=== PATIENT | female | born 1960 | race Caucasian/White ===

== ENCOUNTER 2017-04-12 14:10 | Inpatient (IN) | payer OTHER ==
[~2017-04-12] VITALS: Ht 165.1 cm; Wt 82.6 kg
[2017-05-21] VITALS (8 sets, daily range): BP systolic 133–175; BP diastolic 59–79; PULSE 73–87; TEMP 98.1
[2017-05-21 10:08] LABS: BASO # 0.1 (0.0-0.2); BASO % 0.9 % (0.0-2.0); EOS # 0.1 (0.0-0.7); EOS % 0.7 % (0-4.0); GRAN # 6.6 (1.4-6.5); GRAN % 64.1 % (42.2-75.2); LYMPH # 2.7 (1.2-3.4); LYMPH % 26.8 % (20.0-51.0); MEAN CELL VOLUME 95 fl (80.0-100.0); MEAN CORPUSCULAR HEMOGLOBIN 32 pg (27.0-31.0); MEAN CORPUSCULAR HGB CONC 34 g/dl (33.0-37.0); MEAN PLATELET VOLUME 12.7 fl (7.4-10.4); MONO # 0.7 (0.1-0.6); MONO % 6.7 % (1.7-9.3); PLATELET COUNT 209 K/mm3 (130-400); RED BLOOD COUNT 4.65 M/mm3 (4.10-5.30); WHITE BLOOD COUNT 10.2 K/mm3 (4.8-10.8)
[2017-05-21 10:16] LABS: CALCIUM 10.1 mg/dL (8.4-10.2); CREATININE, serum 0.72 mg/dL (0.52-1.25); POTASSIUM 3.7 mmol/L (3.4-5.0)
[2017-05-21] MEDS ORDERED: TOPROL XL 25MG25 MG PO (10:26)
[2017-05-21] MEDS ORDERED: HCTZ 25MG TAB25 MG PO (10:26)
[2017-05-21] MEDS ORDERED: K-TAB10 PO (10:27)
[2017-05-21] MEDS ORDERED: ASPIRIN 81M81 MG/TA2 PO (10:27)
[2017-05-21] MEDS ORDERED: EPA FISH OIL1 SGL PO (10:29)
[2017-05-22] VITALS (7 sets, daily range): BP systolic 117–136; BP diastolic 53–69; PULSE 76–101; TEMP 98–98.8
[2017-05-22 07:38] LABS: BASO # 0.1 (0.0-0.2); BASO % 0.3 % (0.0-2.0); GRAN # 19.1 (1.4-6.5); GRAN % 86.8 % (42.2-75.2); HEMATOCRIT 40.8 % (37.0-47.0); HEMOGLOBIN 13.5 g/dl (12.5-16.0); LYMPH # 1.2 (1.2-3.4); LYMPH % 5.6 % (20.0-51.0); MEAN CELL VOLUME 98 fl (80.0-100.0); MEAN CORPUSCULAR HEMOGLOBIN 32 pg (27.0-31.0); MEAN CORPUSCULAR HGB CONC 33 g/dl (33.0-37.0); MEAN PLATELET VOLUME 13.3 fl (7.4-10.4); MONO # 1.4 (0.1-0.6); MONO % 6.2 % (1.7-9.3); PLATELET COUNT 189 K/mm3 (130-400); RED BLOOD COUNT 4.18 M/mm3 (4.10-5.30)
[2017-05-22 07:49] LABS: CALCIUM 8.7 mg/dL (8.4-10.2); CREATININE, serum 0.83 mg/dL (0.52-1.25); POTASSIUM 3.7 mmol/L (3.4-5.0)
[2017-05-23 02:26] VITALS: BP 133/62; PULSE 72; TEMP 98.1
[2017-05-23 05:00] VITALS: BP 112/60; PULSE 70; TEMP 98.2
[2017-05-23 10:24] VITALS: BP 131/68; PULSE 71; TEMP 97.4
== END 2017-05-23 13:45 | disposition home or self-care (01) | DRG 657 ==
LOC: INPTSU 05-21 09:24 → SURG 05-21 09:24
PROVIDERS: Nurse Anesthetist, Certified Registered; Urology
PROC: 8E0W4CZ Robotic Assisted Procedure of Trunk Region, Percutaneous Endoscopic Approach (ICD-10-PCS; 2017-05-21)
PROC: 0TB14ZZ Excision of Left Kidney, Percutaneous Endoscopic Approach (ICD-10-PCS; principal; 2017-05-21 12:15)
DX: C64.2 Malignant neoplasm of left kidney, except renal pelvis (principal); I42.0 Dilated cardiomyopathy; I25.10 Atherosclerotic heart disease of native coronary artery without angina pectoris; I10 Essential (primary) hypertension
CPT/HCPCS: A4315; A9284; J0330; J0690; J1100; J1885; J2250; J2270; J2405; J2550; J2704; J2710; J3010; J7120